=== PATIENT | female | born 1970 | race Caucasian/White ===

== ENCOUNTER 2018-06-26 10:40 | Day surgery (SDC) | payer OTHER ==
[2018-06-26] MEDS: CEFAZOLIN 2 GM/50 ML (PMX) 50 ML IVPB (08:00)
[2018-06-26] MEDS: SOD CHLORIDE 0.9% 1,000 ML IV (08:00)
[~2018-06-26 10:40] MED LIST: PROPOFOL 200 MG INJ
[2018-06-26] MEDS ORDERED: HYDROmorphONE 1 MG/5 ML IV SYRINGE IV (14:00)
[2018-06-26] MEDS ORDERED: OXYCODONE/ACETAMINOPHEN (5/325) TAB PO (14:00)
[2018-06-26] MEDS ORDERED: EPHEDrine SULFATE 50 MG/5 ML SYG IV (14:00)
[2018-06-26] MEDS ORDERED: DIPHENHYDRAMINE 50 MG INJ IV (14:00)
[2018-06-26] MEDS ORDERED: hydrALAzine 20 MG INJ IV (14:00)
[2018-06-26] MEDS ORDERED: PROCHLORPERAZINE 10 MG INJ IV (14:00)
[2018-06-26] MEDS ORDERED: FENTAnyl 50 MCG/ML VIAL IV (14:00)
[2018-06-26] MEDS ORDERED: LABETALOL HCL 20MG INJ IV (14:00)
[2018-06-26] MEDS ORDERED: LIDOCAINE 2% (SDV) 5 ML INJ (14:03)
[2018-06-26] MEDS ORDERED: ROPIVACAINE 0.5 % 30 ML VIAL (14:03)
[2018-06-26] MEDS ORDERED: PROPOFOL 20 ML (14:03)
[2018-06-26] MEDS ORDERED: FENTAnyl 50 MCG/ML VIAL (14:03)
[2018-06-26] MEDS ORDERED: SUCCINYLCHOLINE CHLORIDE 100 MG/5 ML SYG IV (14:03)
[2018-06-26] MEDS ORDERED: MIDAZOLAM 1 MG/ML 2 ML INJ (14:03)
[2018-06-26] MEDS ORDERED: ROCURONIUM 50 MG INJ (14:03)
[2018-06-26] MEDS ORDERED: DEXAMETHASONE 4 MG/ML 5 ML INJ (14:36)
[2018-06-26] MEDS ORDERED: CEFAZOLIN 1 GM INJ (14:36)
[2018-06-26] MEDS ORDERED: ONDANSETRON 4 MG INJ (14:36)
[2018-06-26] MEDS ORDERED: FAMOTIDINE 20 MG INJ (14:37)
[2018-06-26] MEDS ORDERED: SUGAMMADEX SODIUM 200 MG/2 ML VIAL IV ×2 (14:45→14:49)
[2018-06-26] MEDS ORDERED: KETOROLAC 30 MG INJ (14:48)
[2018-06-26] MEDS: HYDROmorphONE 1 MG/5 ML IV SYRINGE IV ×2 (15:13→15:21)
[2018-06-26] MEDS: MEPERIDINE 25 MG INJ IV (15:13)
[2018-06-26] MEDS: ONDANSETRON 4 MG INJ IV (15:14)
[2018-06-26] MEDS: FENTAnyl 50 MCG/ML VIAL IV ×2 (15:32→15:59)
[2018-06-26] MEDS: HYDROCODONE/APAP (5/325) TAB PO (15:54)
== END 2018-06-26 17:18 | disposition home or self-care (01) ==
LOC: SDS 10:40
DX: K80.10 Calculus of gallbladder with chronic cholecystitis without obstruction (principal)
CPT/HCPCS: 47562; 84703; 88304